=== PATIENT | female | born 1980 | race Caucasian/White ===

== ENCOUNTER 2022-08-31 06:00 | Inpatient (IN) | payer OTHER ==
[2022-08-31] MEDS ORDERED: TERBUTALINE 1 MG/ML VIAL SQ PRN (06:54)
[2022-08-31] MEDS ORDERED: TRANEXAMIC ACID IN NACL,ISO-OS 1,000 MG in EMPTY BAG 1 BAG IV PRN (06:54)
[2022-08-31] MEDS ORDERED: CARBOPROST TROMETHAMINE 250 MCG/ML 1 ML AMP IM PRN (06:54)
[2022-08-31] MEDS ORDERED: LIDOCAINE 0.5% (PF) 5 MG/ML (50 ML SDV) SQ PRN (06:54)
[2022-08-31] MEDS ORDERED: METHYLERGONOVINE 0.2 MG/ML 1 ML AMP IM PRN (06:54)
[2022-08-31] MEDS ORDERED: miSOPROStoL 200 MCG TAB PO PRN (06:54)
[2022-08-31] MEDS ORDERED: OXYTOCIN 10 UNIT/ML 1 ML VIAL IM PRN (06:54)
[2022-08-31] MEDS ORDERED: PENICILLIN G POTASSIUM 5,000,000 UNIT in DEXTROSE 5% IN WATER 100 ML IVPB STA ×2 (06:59)
[2022-08-31] MEDS ORDERED: OXYTOCIN 30 UNITS/500 ML NS 30 UNIT in SALINE 1 500ML.BAG IV SCH ×2 (07:00→18:15)
[2022-08-31 07:15] LABS: Basophils % (A) 0 %; Eosinophils # (A) 0.5 k/uL (0-0.7); Eosinophils % (A) 6 %; HCT 37.6 % (34.0-46.0); HGB 12.3 gm/dL (11.4-16.0); Lymphocytes % (A) 22 %; MCH 29.7 pg (25.0-35.0); MCHC 32.8 g/dL (31.0-37.0); MCV 90.6 fL (80.0-100.0); Mean Platelet Volume 8.3; Monocytes # (A) 0.6 k/uL (0-1.0); Monocytes % (A) 7 %; Neutrophils # (A) 5.8 k/uL (1.3-7.7); Neutrophils % (A) 63 %; Platelet Count 326 k/uL (150-450); RBC 4.15 m/uL (3.80-5.40); RDW 13.5 % (11.5-15.5); WBC 9.1 k/uL (3.8-10.6)
[2022-08-31] MEDS: LACTATED RINGERS 1,000 ML IV SCH ×4 (07:32→19:36)
[2022-08-31] MEDS ORDERED: NALBUPHINE 10 MG/ML (10 ML MDV) IV PRN (08:43)
--- NOTE | 2022-08-31 08:48 | P.HPOB ---
History of Present Illness H&P Date: 08/31/22 Chief Complaint: 41-5/7 weeks, postdates induction The patient is a 41-year-old 1 para 0 admitted at 41-5/7 weeks as established by last menstrual period and confirmed by 16 week ultrasound. She is admitted for postdates induction of labor with all signs reassuring, category 1 heart rate tracing. Her has been entirely uncomplicated. She does fall into the category of advanced maternal age and underwent trisomy testing which was negative. The patient is Rh- and received RhoGAM at 28 weeks. There were no other complications and group B strep status is positive. Obstetrical history: 1 para 0 with current statistics listed in history of present illness. EDC of 08/19/2022 was established by last menstrual period and confirmed by 16 week ultrasound. Laboratory workup demonstrates a blood type of O- with a negative antibody screen. Rubella status is immune. The remainder of the laboratory workup was within normal limits. One hour Glucola was normal and group B strep status is positive. Gynecologic history: Unremarkable with no history of any infections to include STDs. Review of Systems Review of systems is confined to history of present illness. Past Medical History Additional Past Medical History / Comment(s): asthma History of Any Multi-Drug Resistant Organisms: None Reported Past Surgical History: No Surgical Hx Reported Past Anesthesia/Blood Transfusion Reactions: No Reported Reaction Past Psychological History: No Psychological Hx Reported Smoking Status: Never smoker Past Alcohol Use History: None Reported Past Drug Use History: None Reported Medications and Allergies Home Medications Medication Instructions Recorded Confirmed Type Aspirin 81 mg PO DAILY 08/31/22 08/31/22 History Vit No.179/Iron/Folic 1 tab PO DAILY 08/31/22 08/31/22 History [ Tablet] Allergies Allergy/AdvReac Type Severity Reaction Status Date / Time No Known Allergies Allergy Verified 08/31/22 06:52 Exam Vital Signs Temp Pulse Resp BP Pulse Ox 08/31/22 06:47 97.2 F L 81 16 131/81 99 Intake and Output 08/30/22 08/31/22 08/31/22 22:59 06:59 14:59 Other: Weight 88.451 kg In general, this is a well-developed, well-nourished white female in no acute d istress. Her heart has a regular rhythm and rate without murmur. Her lungs clear to auscultation bilaterally in all andrews. Her abdomen is gravid, nondistended, has normal active bowel sounds, soft, nontender, and without any palpable masses aside from uterine fundus. Her external nasal without any cyanosis, clubbing, or edema and are nontender to palpation bilaterally. Digital cervical examination on straights her to be 2 cm dilated, 50% effaced, the vertex in presentation at -2-3 station. Artificial rupture of membranes is carried out demonstrating clear fluid. Results Result Diagrams: 08/31/22 06:50 Assessment and Plan (1) Post-dates Current Visit: Yes Status: Acute Code(s): O48.0 - POST-TERM SNOM ED Code(s): 89758739 (2) Mother positive for group B Streptococcus colonization Current Visit: Yes Status: Acute Code(s): P00.82 - NB AFF BY (POSITIVE) MATERN GROUP B STREP (GBS) COLONIZATION SNOMED Code(s): 70517401887551 Plan: The patient has been admitted for induction and Pitocin augmentation has been started. She is undergone artificial rupture of membranes. She will have close maternal and surveillance and expectant management will be practiced. Antibody prophylaxis has Moustapha been started as well. She is a good candidate for either IV or epidural analgesia, whichever she may choose.
[2022-08-31] MEDS: PENICILLIN G POTASSIUM 2,500,000 UNIT in DEXTROSE 5% IN WATER 100 ML IVPB SCH ×6 (11:18→23:02)
[2022-08-31] MEDS ORDERED: SODIUM CHLORIDE 0.9% 100 ML BAG ONE (12:28)
[2022-08-31] MEDS ORDERED: fentaNYL (PF) 50 MCG/ML 5 ML AMP ONE (12:28)
[2022-08-31] MEDS ORDERED: ROPIVACAINE 5 MG/ML 20 ML AMPULE ONE (12:28)
[2022-08-31] MEDS ORDERED: KETOROLAC 15 MG/ML 1 ML VIAL ONE (15:11)
[2022-08-31] MEDS ORDERED: OXYTOCIN 30 UNITS/500 ML NS BAG IV ONE (15:11)
[2022-08-31] MEDS ORDERED: MORPHINE SULFATE (PF) 0.3 MG/0.3 ML SYR ONE (15:11)
[2022-08-31] MEDS ORDERED: LIDOCAINE 2% SYG (PF) 100 MG/5 ML ONE (15:11)
[2022-08-31] MEDS ORDERED: diphenhydrAMINE 50 MG/ML 1 ML VIAL IVP PRN ×2 (17:43→18:06)
[2022-08-31] MEDS ORDERED: KETOROLAC 15 MG/ML 1 ML VIAL IVP PRN (17:43)
[2022-08-31] MEDS ORDERED: NALOXONE 0.4 MG/ML 1 ML VIAL IV PRN (17:43)
[2022-08-31] MEDS ORDERED: ONDANSETRON 4 MG/2 ML VIAL IVP PRN (17:43)
[2022-08-31] MEDS ORDERED: HYDROmorphone 0.5 MG/0.5 ML SYRINGE IVP PRN (17:43)
[2022-08-31] MEDS ORDERED: diphenhydrAMINE 50 MG CAP PO PRN (18:06)
[2022-08-31] MEDS ORDERED: diphenhydrAMINE 25 MG CAP PO PRN (18:06)
[2022-08-31] MEDS ORDERED: METOCLOPRAMIDE 5 MG/ML 2 ML VIAL IVP PRN (18:06)
[2022-08-31] MEDS ORDERED: ZOLPIDEM 5 MG TAB PO PRN (18:06)
[2022-08-31] MEDS ORDERED: SIMETHICONE 80 MG CHEWABLE PO PRN (18:06)
[2022-08-31] MEDS ORDERED: LANOLIN CREAM 5 GM TUBE TOPICAL PRN (18:06)
--- NOTE | 2022-08-31 18:18 | P.OP ---
Date of Procedure: 08/31/22 Preoperative Diagnosis: #1. 41-5/7 weeks, induction #2. Rh- #3. Group B strep colonization #4. intolerance of the second stage of labor #5. Arrest of descent #. Suspected malposition Postoperative Diagnosis: Same Procedure(s) Performed: #1. Primary low-transverse section Anesthesia: epidural Surgeon: Bobby Arias Delivery Recruiter #1: Susan Wilkinson Estimated Blood Loss (ml): 770 IV fluids (ml): 1,000 Urine output (ml): 200 Pathology: none sent Condition: stable Disposition: floor Operative Findings: Reached complete dilation and began pushing. She made descent to approx imately 0 station at which time no further descent was noted over the course of approximately 1 hour of pushing. During the second stage, she developed deep repetitive late decelerations following each contraction. malposition was additionally suspected with position thought to be occiput posterior. Given these 5 days, the patient was counseled regard primary section to which ultimately agreed. She was taken the operating room where she was delivered of a viable 7 lbs. 11 oz. baby boy with Apgars of 9 at 1 minute and 9 at 5 minutes delivered in the right occiput posterior position. There was a nuchal cord 1 noted. The placenta was delivered manually, intact, and grossly normal with a grossly normal three-vessel cord. The uterus, tubes, and ovaries were entirely normal to inspection. Because of the depth of the head in the pelvis with pushing, there was a laceration at the right angle of the incision towards the cervix which was closed continuously during closure of the uterine incision. Description of Procedure: The patient was prepped and draped in usual fashion after epidural anesthesia was bolused by the anesthesiologist. A Pfannenstiel incision was made and extended into the abdominal cavity without difficulty. The bladder peritoneum was significantly distal to the intended site of incision was left intact. A 2 cm incision was made in the transverse plane of the lower uterine segment to enter the uterus at which time clear fluid was again noted. The incision was extended in both directions using the bandage scissors. The head was encountered deep within the pelvis in the right occiput posterior position. It was elevated up and through the incision where the nose and mouth were thoroughly suctioned. A nuchal cord 1 was reduced. The remainder of the was delivered onto the field where the cord was doubly clamped, cut, and the passed for resuscitative measures with weight and Apgars as noted above. cord blood was collected. A segment of cord was doubly clamped, cut, and set aside should cord gases become necessary. The placenta was delivered manually and intact as noted above. The uterus was exteriorized and the interior cavity of the uterus swept of any remaining placental or membranous fragments. The margins of the incision were grasped with Trejo clamps and there was noted to be a relatively deep laceration at the right angle towards the cervix which was grasped at its deepest point with a Trejo clamp. The uterine incision was then closed in 2 layers with the first layer being a running locking stitch of 0 chromic catgut from margin to the margin and the deep pelvis at the end of the laceration. The second layer was a running imbricating stitch of 0 chromic catgut in similar fashion. Any small points of bleeding were then made hemostatic with the Bovie. The posterior cul-de-sac was suctioned with a guard and the uterine and ovarian findings were normal as noted above. There was noted to be some blood-tinged urine secondary to the depth of the head in the pelvis which had cleared by the end of the case. The uterus was replaced within the abdominal cavity after suctioning the cul-de-sac with a guard followed by a laparotomy sponge. The gutters were swept of any remaining blood, fluid, or clot. The incision was reexamined and any small points of bleeding made hemostatic with the Bovie. There was one point in the left middle section that required a single araeme-fj-nujzg stitch of 0 chromic catgut to control it. After ensuring hemostasis, the parietal peritoneum was loosely reapproximated and layer of muscles was made hemostatic with the Bovie. The fascia was closed with a single running stitch of 0 Vicryl proceeding from lateral margin to lateral margin. The subcutaneous tissues were irrigated, made hemostatic with the Bovie, and reapproximated with a running stitch of 30 plain catgut. The skin was reapproximated with a running subcuticular stitch of 4-0 Vicryl followed by half-inch Steri-Strips placed with Mastisol. Quantitative blood loss for the case was 770 mL. There were no complications. All sponge, instrument, needle counts were correct. The patient tolerated the procedure well and proceeded to the recovery room in stable condition. Both mother and are resting comfortably in recovery.
[2022-08-31] MEDS: SENNOSIDES-DOCUSATE SODIUM 1 EACH TAB PO SCH (21:35)
[2022-08-31] MEDS: ACETAMINOPHEN TAB 500 MG TAB PO SCH (21:35)
[2022-09-01] MEDS: IBUPROFEN 600 MG TAB PO SCH ×5 (01:11→23:37)
[2022-09-01] MEDS: LACTATED RINGERS 1,000 ML IV SCH ×2 (01:36→20:03)
[2022-09-01] MEDS: ACETAMINOPHEN TAB 500 MG TAB PO SCH ×4 (02:51→19:41)
[2022-09-01] MEDS ORDERED: Rhogam IMMUNE GLOBULIN 1,500 UNIT/1 ML IM ONE (02:53)
[2022-09-01 06:30] LABS: Basophils % (A) 0 %; Eosinophils # (A) 0.2 k/uL (0-0.7); Eosinophils % (A) 1 %; HCT 35.2 % (34.0-46.0); HGB 11.6 gm/dL (11.4-16.0); Lymphocytes % (A) 9 %; MCHC 32.9 g/dL (31.0-37.0); MCV 91.1 fL (80.0-100.0); Mean Platelet Volume 8.8; Monocytes # (A) 0.7 k/uL (0-1.0); Monocytes % (A) 6 %; Neutrophils # (A) 9.6 k/uL (1.3-7.7); Neutrophils % (A) 82 %; Platelet Count 295 k/uL (150-450); RBC 3.87 m/uL (3.80-5.40); RDW 13.5 % (11.5-15.5); WBC 11.7 k/uL (3.8-10.6)
--- NOTE | 2022-09-01 08:42 | P.PNOBGPC ---
Subjective - Subjective Patient reports: Reports appetite normal, Reports voiding normally, Reports pain well controlled, Reports ambulating normally : doing well Objective - Vital Signs Latest vital signs: Vital Signs Temp Pulse Resp BP Pulse Ox 09/01/22 05:49 14 09/01/22 03:30 98.2 F 77 12 103/65 99 09/01/22 02:00 12 09/01/22 00:25 98.8 F 81 14 126/67 97 08/31/22 22:08 16 08/31/22 20:15 98.9 F 90 16 126/69 08/31/22 19:40 98.9 F 85 14 132/71 08/31/22 19:09 85 16 124/65 08/31/22 18:55 97.3 F L 83 16 126/66 08/31/22 18:43 88 16 128/60 98 08/31/22 18:40 97.7 F 93 18 128/60 08/31/22 18:25 88 16 118/69 08/31/22 18:10 97.3 F L 81 16 122/60 98 08/31/22 17:43 16 98 Intake and Output 08/31/22 09/01/22 09/01/22 22:59 06:59 14:59 Intake Total 21.1 Output Total 2205 1200 Balance -2183.9 -1200 Intake: Intake, IV Titration 21.1 Amount Oxytocin 30 Units/500 ml 21.1 Ns 30 unit In Saline 1 500ml.bag @ Per Protocol IV .Q0M [facility] Rx#:[id number] Output: Urine 1200 1200 Uretheral (Jimenez) 1200 Output, Quantitative 1005 Blood Loss Other: Voiding Method Indwelling Catheter # Voids 0 - Exam Extremities: Present: normal Abdomen: Present: normal appearance, soft. Absent: distention, tenderness Incision: Present: normal, dry, intact Uterus: Present: normal, firm (The uterine fundus as tonic and minimally tender just below the umbilicus.) - Labs Labs: Abnormal Lab Results - Last 24 Hours (Table) 09/01/22 Range/Units 06:01 WBC 11.7 H (3.8-10.6) k/uL Neutrophils # 9.6 H (1.3-7.7) k/uL Assessment and Plan (1) Post-dates Current Visit: Yes Status: Acute Code(s): O48.0 - POST-TERM SNOMED Code(s): 30202411 (2) Mother positive for group B Streptococcus colonization Current Visit: Yes Status: Acute Code(s): P00.82 - NB AFF BY (POSITIVE) MATE RN GROUP B STREP (GBS) COLONIZATION SNOMED Code(s): 49122910554446 (3) Status post section Current Visit: Yes Status: Acute Code(s): Z98.891 - HISTORY OF UTERINE SCAR FROM PREVIOUS SURGERY SNOMED Code(s): 829738928 Plan: Continue routine and postoperative care. I have encouraged the patient name Cecily the hallways routinely. I would anticipate discharge home tomorrow pending no complications.
--- NOTE | 2022-09-01 08:50 | P.PN ---
Progress Note - Text Progress Note Date: 09/01/22 Postoperative day 1 status post section under epidural anesthesia, and epidural morphine given for postoperative analgesia, patient doing well, there is no anesthesia related complications, Patient had no headache, vital signs stable , Assessment and plan= postop day 1 status post , doing well there is no anesthesia related complication.
[2022-09-01] MEDS: SENNOSIDES-DOCUSATE SODIUM 1 EACH TAB PO SCH ×2 (08:55→19:43)
[2022-09-02 00:52] VITALS: BP 108/66; PULSE 76
[2022-09-02] MEDS: ACETAMINOPHEN TAB 500 MG TAB PO SCH (03:46)
[2022-09-02] MEDS: IBUPROFEN 600 MG TAB PO SCH (06:10)
[2022-09-02 09:34] VITALS: RESP 15; TEMP 98.3
--- NOTE | 2022-09-02 11:42 | P.DS ---
Providers Date of admission: 08/31/22 06:34 Expected date of discharge: 09/02/22 Attending physician: Bobby Arias Primary care physician: Stated None - Discharge Diagnosis(es) (1) Post-dates Current Visit: Yes Status: Acute (2) Mother positive for group B Streptococcus colonization Current Visit: Yes Status: Acute (3) Status post section Current Visit: Yes Status: Acute Hospital Course: The patient is a 41-year-old 1 para 0 admitted at 41-5/7 weeks by good dating parameters perches admitted for postdates induction with all signs reassuring. Her was uncomplicated. She did fall into the category of advanced maternal age and had trisomy testing which was negative. She additionally was Rh- and received RhoGAM at 28 weeks. Group B strep status was positive. On labor and delivery, she had category 1 heart rate tracing. She had Pitocin augmentation started as well as antibody prophylaxis. She underwent artificial rupture of membranes for clear fluid. She made consistent progress throughout the day and ultimately got to complete. She pushed for approximately 1 hour during which time she had arrest of descent at approximately 0 station was thought to be in the occiput posterior position. Additionally, the fetus continued demonstrate deep late decelerations following every push over the course of the last 15-20 minutes. After approximately 1 hour of pushing with intolerance of the second stage and arrest of descent, the patient was counseled and taken the operating room where she underwent a primary low-transverse section for a viable 7 lbs. 11 oz. baby boy with Apgars of 9 at 1 minute and 9 at 5 minutes delivered in the occiput posterior position. Her postoperative and course was unremarkable with vital signs remaining stable and her temperature was afebrile throughout. She was deemed stable for discharge on and postoperative day #2. She was discharged home to follow-up in the office in 2 weeks for an incision check and 6 weeks routinely. Discharge instructions included calling for any significantly increased bleeding or foul-smelling lochia, significantly increased fever abdominal pain, perineal complaints, breast complaints, incisional complaints, or anything also concerned her. She is additionally instructed to do no heavy lifting over the next 6 weeks and to abstain from anything in the vagina to include intercourse over the next 6 weeks time. She was less than any no driving until off of all pain medications or 2 weeks' time, whichever came first. She understood her instructions and agrees to follow up as noted above. Discharge medications included [id number] analgesic pain medications, continued vitamins as she has opted to breast-feed. She additionally was provided with a prescription for Tylenol No. 3, 1-2 by mouth every 6 hours when necessary pain, #20 dispensed. Maternal blood type is O- and cord blood was sent for evaluation for the necessity of RhoGAM prior to discharge. Rubella status is immune. Discharge hemoglobin and hematocrit were 11.6 and 35.2 respectively. Procedures: #1. Pitocin induction #2. Antibiotic prophylaxis #3. Artificial rupture of membranes #4. Epidural analgesia #5. Primary low-transverse section Patient Condition at Discharge: Stable Plan - Discharge Summary Discharge Rx Participant: No New Discharge Prescriptions: No Action Vit No.179/Iron/Folic [ Tablet] 1 tab PO DAILY Aspirin 81 mg PO DAILY Discharge Medication List Aspirin 81 mg PO DAILY 08/31/22 [History] Vit No.179/Iron/Folic [ Tablet] 1 tab PO DAILY 08/31/22 [History] Follow up Appointment(s)/Referral(s): Bobby Arias MD [STAFF PHYSICIAN] - 2 Weeks Discharge Disposition: HOME SELF-CARE
== END 2022-09-02 14:15 | disposition home or self-care (01) | DRG 787 ==
LOC: 4FBP 06:34
PROVIDERS: ADMIT Obstetrics & Gynecology; ATTEND Obstetrics & Gynecology
PROC: 0UQC0ZZ Repair Cervix, Open Approach (ICD-10-PCS; 2022-08-31)
PROC: 3E0R3BZ Introduction of Anesthetic Agent into Spinal Canal, Percutaneous Approach (ICD-10-PCS; 2022-08-31)
PROC: 4A1HXCZ Monitoring of Products of Conception, Cardiac Rate, External Approach (ICD-10-PCS; 2022-08-31)
PROC: 10907ZC Drainage of Amniotic Fluid, Therapeutic from Products of Conception, Via Natural or Artificial Opening (ICD-10-PCS; 2022-08-31)
PROC: 3E033VJ Introduction of Other Hormone into Peripheral Vein, Percutaneous Approach (ICD-10-PCS; 2022-08-31)
PROC: 10D00Z1 Extraction of Products of Conception, Low, Open Approach (ICD-10-PCS; principal; 2022-08-31 18:03)
PROC: 3E0334Z Introduction of Serum, Toxoid and Vaccine into Peripheral Vein, Percutaneous Approach (ICD-10-PCS; 2022-09-01)
DX: O48.0 Post-term pregnancy (principal); O71.3 Obstetric laceration of cervix; O26.893 Other specified pregnancy related conditions, third trimester; O99.824 Streptococcus B carrier state complicating childbirth; O62.1 Secondary uterine inertia; O32.8XX0 Maternal care for other malpresentation of fetus, not applicable or unspecified; O76 Abnormality in fetal heart rate and rhythm complicating labor and delivery; O69.81X0 Labor and delivery complicated by cord around neck, without compression, not applicable or unspecified; Z37.0 Single live birth; Z3A.41 41 weeks gestation of pregnancy; Z67.41 Type O blood, Rh negative; Z79.82 Long term (current) use of aspirin
CPT/HCPCS: 85025; 85461; 86850; 86900; 86901